=== PATIENT | female | born 1955 | race Caucasian/White ===

== ENCOUNTER 2019-06-25 07:19 | Emergency (ER) | payer OTHER ==
[~2019-06-25] VITALS: Ht 149.9 cm; Wt 67.6 kg
[~2019-06-25 07:19] MED LIST: ARIP10; CLIN150; CLIN150 PO; CLOZ100; CLOZ100 PO; CLOZ25 PO; CLOZARIL; DOCU100 PO; ENJUVIA PO; FERR325; FLUO10 PO; FLUO20; FLUO20 PO; HALO2 PO; HYDACE25S PR; LAMICTAL; LAMO100; LAMO100 PO; LAMO50 PO; LAVAP17G PO; LEVOTHYROXINE; LEVOXYL PO; LEVSOD100; LEVSOD150; LEVSOD150 PO; LITH300C; LITH300CA; LITH300CA PO; LITH450ER PO; LITHIUM; MEDR5; OMEP20ER PO; OXYB5; OXYB5 PO; PROM25 PO; PROZAC; PSYL5.85P PO; RANI150; RANI150 PO; SENNA; SENNP; SULTRIDS PO; TRIH2 PO; [UNRECOGNIZED DRUG - REMARK]
[2019-06-25] MEDS ORDERED: Neurontin400 MG PO (07:37)
[2019-06-25] MEDS ORDERED: THYR60 PO (07:37)
[2019-06-25] MEDS ORDERED: LORAZEPAM0.5 MG PO (07:37)
[2019-06-25] MEDS ORDERED: HYDHCL25 PO (07:38)
[2019-06-25 08:07] LABS: BASOPHILS ABSOLUTE AUTO 0.04 K/mm3 (0.00-0.23); BASOPHILS PERCENT AUTO 0 % (0-2); EOSINOPHILS ABSOLUTE AUTO 0.12 K/mm3 (0.00-0.68); EOSINOPHILS PERCENT AUTO 1 % (0-6); Hematocrit 45.9 % (33.0-51.0); Hemoglobin 14.6 g/dL (11.5-16.0); IMMATURE GRAN ABSOLUTE AUTO 0.03 K/mm3 (0.00-0.10); IMMATURE GRAN PERCENT AUTO 0 % (0-1); LYMPHOCYTES ABSOLUTE AUTO 2.27 K/mm3 (0.84-5.20); LYMPHOCYTES PERCENT AUTO 25 % (21-46); MONOCYTES ABSOLUTE AUTO 0.63 K/mm3 (0.16-1.47); MONOCYTES PERCENT AUTO 7 % (4-13); Mean Corpuscular HGB 30.7 pg (26.0-34.0); Mean Corpuscular HGB Conc 31.8 g/dL (31.5-36.5); Mean Corpuscular Volume 97 fL (80-100); Mean Platelet Volume 10.5 fL (9.1-12.4); NEUTROPHILS ABSOLUTE AUTO 5.98 K/mm3 (1.96-9.15); NEUTROPHILS PERCENT AUTO 66 % (41-73); Platelet Count 232 K/mm3 (150-400); RDW Coefficient Variation 15.4 % (11.7-14.2); RDW Standard Deviation 55.8 fL (35.1-46.3); Red Blood Cell Count 4.75 M/mm3 (3.80-5.20); White Blood Cell Count 9.07 K/mm3 (4.00-11.30)
[2019-06-25 08:29] LABS: Alanine Aminotransfer (ALT/SGP 16 U/L (12-78); Albumin, Blood 4.4 g/dL (3.4-5.0); Albumin/Globulin Ratio 1.4 (0.8-1.8); Alk Phos 61 U/L (50-136); Anion Gap 10 mmol/L (6-16); Aspartate Aminotrans (AST/SGOT 8 U/L (12-37); Bilirubin, Total 0.5 mg/dL (0.1-1.0); Blood Urea Nitrogen 25 mg/dL (8-24); Bun/Creatinine Ratio 32.4 (12.0-20.0); CO2, Blood 26 mmol/L (21-32); Calcium, Blood 10.1 mg/dL (8.5-10.1); Chloride, Blood 105 mmol/L (98-108); Creatinine, Blood 0.77 mg/dL (0.40-1.00); Globulin, Blood 3.1 g/dL (2.2-4.0); Glomerular Filtration Rate >60 (60-); Glucose, Blood 82 mg/dL (70-99); Potassium, Blood 3.9 mmol/L (3.5-5.5); Sodium, Blood 141 mmol/L (136-145); Total Protein, Blood 7.5 g/dL (6.4-8.2)
[2019-06-25 10:13] LABS: Source, Urine Clean Catch
[2019-06-25 10:58] LABS: Blood, Urine 3+ (Neg); Glucose Qualitative, Urine Neg (Neg); Ketones, Urine 4+ (Neg); Leukocyte Esterase, Urine 1+ (Neg); Nitrite, Urine Neg (Neg); Protein, Urine 2+ (Neg); Urobilinogen, Urine NORM (Normal)
[2019-06-25 11:30] LABS: Appearance, Urine Clear (Clear); Bilirubin, Urine 1+ (Neg); Color, Urine Yellow (P-Yellow)
[2019-06-25 11:31] LABS: Bacteria Few /hpf; Squamous Epithelial Cells Few /hpf (Few)
[2019-06-25] MEDS ORDERED: Synthroid25 MCG PO (11:50)
== END 2019-06-25 20:30 | disposition home or self-care (01) ==
LOC: ER 07:19
PROVIDERS: Emergency Medicine
DX: R53.1 Weakness (principal); E03.9 Hypothyroidism, unspecified; F25.9 Schizoaffective disorder, unspecified; F31.9 Bipolar disorder, unspecified; K21.9 Gastro-esophageal reflux disease without esophagitis; G62.9 Polyneuropathy, unspecified; E78.5 Hyperlipidemia, unspecified; Z88.0 Allergy status to penicillin; Z88.8 Allergy status to other drugs, medicaments and biological substances; Z79.899 Other long term (current) drug therapy
CPT/HCPCS: 36415; 70450; 80053; 81001; 84439; 84443; 85025; 87086; 96360; 99285-25; J7030; P9612; Q3014

== ENCOUNTER 2019-07-03 00:52 | Inpatient (IN) | payer OTHER ==
[~2019-07-03] VITALS: Ht 149.9 cm; Wt 67.0 kg
[~2019-07-03 00:52] MED LIST changes: +HYDHCL25 PO; +LORAZEPAM0.5 MG PO; +Neurontin400 MG PO; +Synthroid25 MCG PO; +THYR60 PO
[2019-07-03 01:34] LABS: BASOPHILS ABSOLUTE AUTO 0.02 K/mm3 (0.00-0.23); BASOPHILS PERCENT AUTO 0 % (0-2); EOSINOPHILS ABSOLUTE AUTO 0.13 K/mm3 (0.00-0.68); EOSINOPHILS PERCENT AUTO 2 % (0-6); Hematocrit 42.2 % (33.0-51.0); Hemoglobin 13.5 g/dL (11.5-16.0); IMMATURE GRAN ABSOLUTE AUTO 0.03 K/mm3 (0.00-0.10); IMMATURE GRAN PERCENT AUTO 0 % (0-1); LYMPHOCYTES ABSOLUTE AUTO 1.97 K/mm3 (0.84-5.20); LYMPHOCYTES PERCENT AUTO 25 % (21-46); MONOCYTES ABSOLUTE AUTO 0.52 K/mm3 (0.16-1.47); MONOCYTES PERCENT AUTO 7 % (4-13); Mean Corpuscular HGB 30.6 pg (26.0-34.0); Mean Corpuscular Volume 96 fL (80-100); NEUTROPHILS ABSOLUTE AUTO 5.09 K/mm3 (1.96-9.15); NEUTROPHILS PERCENT AUTO 66 % (41-73); Platelet Count 108 K/mm3 (150-400); RDW Coefficient Variation 14.9 % (11.7-14.2); RDW Standard Deviation 53.3 fL (35.1-46.3); Red Blood Cell Count 4.41 M/mm3 (3.80-5.20); White Blood Cell Count 7.76 K/mm3 (4.00-11.30)
[2019-07-03 01:56] LABS: Free Thyroxine 0.85 ng/dL (0.70-1.60); Lithium <0.20 mmol/L (0.60-1.20)
[2019-07-03 01:57] LABS: Alanine Aminotransfer (ALT/SGP 18 U/L (12-78); Albumin, Blood 3.4 g/dL (3.4-5.0); Albumin/Globulin Ratio 1.2 (0.8-1.8); Alk Phos 58 U/L (50-136); Anion Gap 10 mmol/L (6-16); Aspartate Aminotrans (AST/SGOT 16 U/L (12-37); Bilirubin, Total 0.5 mg/dL (0.1-1.0); Blood Urea Nitrogen 11 mg/dL (8-24); Bun/Creatinine Ratio 16.9 (12.0-20.0); CO2, Blood 24 mmol/L (21-32); Calcium, Blood 9.1 mg/dL (8.5-10.1); Chloride, Blood 108 mmol/L (98-108); Creatinine, Blood 0.65 mg/dL (0.40-1.00); Globulin, Blood 2.8 g/dL (2.2-4.0); Glomerular Filtration Rate >60 (60-); Glucose, Blood 77 mg/dL (70-99); Potassium, Blood 3.5 mmol/L (3.5-5.5); Sodium, Blood 142 mmol/L (136-145); Total Protein, Blood 6.2 g/dL (6.4-8.2); Troponin I <0.015 ng/mL (0.000-0.040)
[2019-07-03 01:58] LABS: Thyroid Stimulating Hormone 21.2 uIU/mL (0.360-4.800)
[2019-07-03 02:20] LABS: Source, Urine Catheter
[2019-07-03 02:23] LABS: Blood, Urine 1+ (Neg); Glucose Qualitative, Urine Neg (Neg); Ketones, Urine 4+ (Neg); Leukocyte Esterase, Urine 1+ (Neg); Nitrite, Urine Neg (Neg); Protein, Urine 1+ (Neg); Specific Gravity, Urine 1.025 (1.003-1.022); Urobilinogen, Urine 1+ (Normal)
[2019-07-03 02:29] LABS: Appearance, Urine Hazy (Clear); Bilirubin, Urine 1+ (Neg); Color, Urine Yellow (P-Yellow)
[2019-07-03 02:30] LABS: Amorphous Mod (0-Heavy); Bacteria Few /hpf; Red Blood Cells, Urine Rare /hpf (0-2); Squamous Epithelial Cells Rare /hpf (Few)
--- NOTE | 2019-07-03 06:26 | NUR ---
D-DIMER ELEVATED D-DIMER WITH LAB DRAW. DR. AEVRY CALLED AND NOTIFIED. PE STUDY ORDERED. PT RESTING IN BED AT THIS TIME. WITH NO S/S OF DISTRESS.
--- NOTE | 2019-07-03 06:36 | NUR ---
SHIFT SUMMARY PT ER ADMIT THIS AM AT 0430. PT HAS GENERAIZED WEAKNESS, PT EXT ARE CONTROLLED AND RIGID. SHE IS UNABLE TO MOVE HER NECK FROM SIDE TO SIDE. WHEN I ASKED TO TO LIFT HER HANDS SHE WAS ABLE TO AND WAS ABLE TO GRASP MY HANDS. GRASPS WAS STRONG. HOWEVER PT HAS VERY LITTLE FINE MOTOR SKILLS AND IS UNABLE TO GRASP A PEN. PUPILS ARE EQUAL AND REACTIVE. SHE SWALLOWS WITHOUT DIFFICULTY. EXT WARM TO TOUCH. PT ABLE TO GIVE A SLIGHT SMILE. PT REPORTS PAIN IN HER LEGS. NO REDNESS, SWELLING TO LEGS. SKIN OVERALL IS WNL. HER VITALS ARE STABLE. PT A/OX4, SPEECH IS SLOW AND MUFFULED. PER DR. BRICENO POSSIBLE CATONIA? CONSULT FAXED IN FOR DR. SHOEMAKER. D-DIMER ELEVATED, IV INFILTRATED. STAT PE STUDY TO BE DONE THIS AM ONCE IV ACCESS IS REESTABLISHED. LOAD BLOCKER AWARE OF LOSS OF IV ACCESS. PT DIFFICULT START REQUIRING ULTRASOUND. IV ABX STILL NEEDING TO BE INFUSED. DUE TO PT LEG PAIN, AND POSSIBILTY OF PE, SCDS WERE REMOVED UNTIL RESULTS OF STUDY ARE BACK. ADMISSION COMPLETE. BED IN LOWEST POSITION. CALL LIGHT WITHIN REACH. WILL CONTINUE TO MONITOR AND REPORT TO ONCOMING RN.
[2019-07-03] MEDS ORDERED: DOCU100 PO (07:16)
--- NOTE | 2019-07-03 09:00 | NUR ---
PT PLEASANT QUIET, ALMOST WHISPER. A/O X3. STATES FROM [place] LAST 8 YRS. BUT NOW WITH SISTER RECENTLY. H/R REG, NO MURMER NOTED. NO TELE. LUNGS CLEAR, RESP EASY, UNLABORED ON RA. VOIDS ATTENDS. WILL ATTEMPT BEDPAN. STATES KNOWS IF NEEDS TO USE BATHROOM. ALSO KNOWS IF WET. BUT UNABLE TO WALK AT THIS TIME. PT STATES HAS SOME FEELING IN LEGS, JUST CANT MOVE THEM. BED IN LOW POSITION, CALL LITE IN REACH, BED ALARM ON FOR SAFETY
[2019-07-03 09:56] LABS: International Normalized Ratio 1.02; Prothrombin Time Results 10.9 Sec (9.7-11.5)
--- NOTE | 2019-07-03 10:07 | NUR ---
0820 IMAGING, DR SANCHEZ CALLED. PE RT SIDE. CALLED DAPHNE. ORDERS FOR HEPARIN BOLUS AND DRIP, PHARMACY TO CONTROL RATE. STARTED BOLUS AND DRIP. ALSO ORDERS FOR CONT BIOX. STARTED.
--- NOTE | 2019-07-03 11:10 | NUR ---
DR PALAFOX. CANCELLED MRI ORDERS AT THIS TIME. PEND [facility]. .
--- NOTE | 2019-07-03 18:45 | NUR ---
PT PLEASANT TODAY WITH ME. DENIES PAIN. SAYS CANNOT MOVE EXTREMETIES. HOWEVER DOES MOVE SOME. JESI R/T STOPPED MEDS . WE ARE RESTARTING TODAY. CONTINUE TURNING Q2. KEEPING CLEAN AND DRY. HEPARIN DRIP RUNNING PER ORDERS. NO OTHER CONCERNS AT THIS TIME. BED IN LOW POSITION, CALL LITE IN REACH, CALLS APPROP
--- NOTE | 2019-07-04 03:57 | NUR ---
SHIFT SUMMARY PATIENT HAD NO ACUTE CHANGES. AXOX 3 AND SLOW TO RESPOND. BEDREST. PIVS REMAIN INTACT. HEPARIN INFUSING AT 17 mL/HR MANAGED BY PHARMACY. REPORTED JAW PAIN AND TYLENOL GIVEN PER EMAR AND IV TORADOL GIVEN FOR LEG PAIN PER EMAR. PO BENADRYL 25 MG GIVEN FOR INSOMINA. DENIES SOB AND N/V. VSS/AFEBRILE. CALL LIGHT IN REACH. BED IN LOWEST POSITION. WILL CONTINUE TO MONITOR UNTIL DAY SHIFT NURSE ASSUMES CARE.
--- NOTE | 2019-07-04 11:10 | NUR ---
Advance Directive education attempted. Upon receiving an admit referral for advance directive education, I visit patient. Patient asks what an advance directive is and I inform her of the importance, the content and the process of the advance directive and patient and her sister, Nguyen, inform me that they have no interest in learning more or receiving an advance directive booklet.
--- NOTE | 2019-07-04 12:45 | NUR ---
PT IS CALM W/ FLAT AFFECT, PERIODICALLY ASKS FOR REPOSITIONING, ADJUSTING OF ARMS OR LEGS, BED ADJUSTMENT. PT C/O PAIN TO ANKLES BILATERALLY. LEGS REPOSITIONED TO PT'S COMFORT LEVEL WITH PILLOWS, MEDICATED PER EMAR. PT'S SISTER IN ROOM.
--- NOTE | 2019-07-04 18:42 | NUR ---
SHIFT SUMMARY. A&OX2-3, INTERMITTENT CONFUSION, PLEASANT AND COOPERATIVE WITH CARE. PT IS INCONTINENT WITH POOR BED MOBILITY, NEEDS ANTICIPATED. PT REPORTS PAIN TO ANTERIOR SHINS UNRELIEVED WITH PRN APAP, DR. BRITO NOTIFIED AND RECIEVED ORDERS FOR TRAMADOL WHICH MANAGED PAIN WELL. NO N/V, SOB. POOR APPETITE AND MEAL INTAKE. PT DID NOT VOID SINCE BEGINING OF THE SHIFT, BLADDER SCAN VOLUME [address] BRITO NOTIFIED AND RECIEVED ORDERS FOR STRAIGHT CATH Q6H FOR BLADDER SCAN VOLUME GREATER THAN 400 ML. STRAIGHT CATH COMPLETED, 750ML DRAINED. SISTER AT BEDSIDE ALL OF AFTERNOON. PHYSICAL THERAPY REPORTS THAT PT'S MOVEMENT HAS INCREASED FROM WHAT WAS PREVIOUSLY REPORTED. NO OTHER CHANGES OR CONCERNS.
--- NOTE | 2019-07-04 21:55 | NUR ---
PATIENT RESTING IN BED. SISTER SLEEPING ON BENCH SEAT. DENIES PAIN, SOB, AND N/V. CALL LIGHT IN REACH.
--- NOTE | 2019-07-05 02:43 | NUR ---
BLADDER SCAN CHECK: 161 mL. WILL CONTINUE TO MONITOR.
--- NOTE | 2019-07-05 03:17 | NUR ---
ULTRAM 50 MG GIVEN FOR BILATERAL LEG PAIN. PATIENT UP MOST OF THE SHIFT WITH SISTER. CALL LIGHT IN REACH.
--- NOTE | 2019-07-05 03:31 | NUR ---
SHIFT SUMMARY PATIENT HAD NO ACUTE CHANGES OBSERVED. AXOX 3 AND SLOW TO RESPOND. BEDREST. TAKES MEDICATION ONE AT A TIME. PIVS REMAIN INTACT. SISTER PRESENT IN ROOM T/O SHIFT. PATIENT UP MOST OF THE SHIFT TALKING TO SISTER ON/OFF. REPORTED BILATERAL LEG PAIN AND ULTRAM 50 MG GIVEN PER EMAR. DENIES SOB AND N/V. VSS/AFEBRILE. BLADDER SCAN: 161 mL. PIVS REMAIN INTACT. CALL LIGHT IN REACH. BED IN LOWEST POSITION. WILL CONTINUE TO MONITOR UNTIL DAY SHIFT NURSE ASSUMES CARE.
--- NOTE | 2019-07-05 18:41 | NUR ---
SHIFT SUMMARY. ALERT, ORIENTATED TO SELF AND FAMILY, AND PLACE. PT REPORTED PAIN WAS TOLERABLE THIS SHIFT AND DENIED THE NEED FOR PAIN MEDICATION. NO N/V. PT BECAME ANXIOUS THIS EVENING, YELLING OUT, PRN ATIVAN GIVEN, PT CALMED DOWN SIGNIFICANTLY POST ADMINISTRATION. PT REFUSED STRAIGHT CATH, NO VOID THIS SHIFT, WILL REQUEST SALES REPRESENTATIVE GIRLS[employer]PAREL TO REAPROACH. PT REFUSED SUPPOSITORY AND BOWEL CARE MEDS, WILL REQUEST SALES REPRESENTATIVE [employer]IR[employer] REAPPROACH. SISTER AT BEDSIDE MOST OF THE SHIFT. PT UP TO CHAIR WITH TWO ASSIT FOR MEALS. NO OTHER CHANGES OR CONCERNS.
--- NOTE | 2019-07-06 02:54 | NUR ---
PT HAD LARGE BM POST SUPPOSITORY. PT HAD < 400 ML WHEN BLADDER SCANNED. PT ABLE TO VOID ON TOILET.
--- NOTE | 2019-07-06 05:23 | NUR ---
SUMMARY PT HAD A LARGE BM AND VOIDED WELL. PT BLADDER SCAN THIS AM IS <400 ML, WCTM. PT HAD NO COMPLAINTS AND HAS RESTED WELL. PT SISTER HAS STAYED THE NIGHT WITH PT. PT IS STILL UNSTEADY ON HER FEET. PT CURRENTLY SLEEPING AND BREATHING EASY. CALL LIGHT IN REACH AND BED ALARM ON.
--- NOTE | 2019-07-06 06:39 | NUR ---
PT COMPLAINING OF ISSUES FROM DROOLING. PT STATES MARVINDRYL HELPS WITH ISSUE. WILL PASS ON TO DAY RN. PT MAY BENEFIT FROM PRN TIAYL FOR DROOLING PROBLEM. JAMAAL.
--- NOTE | 2019-07-06 17:11 | NUR ---
SHIFT SUMMARY- PT IS A/O, PLEASANT AND COOPERATIVE. SHE IS EATING AND DRINKING WELL. SHE IS HAVING SOME EXCESSIVE SALAVATION THAT IS BOTHERING HER, SHE IS RECIEVING BENADRYL FOR IT. SHE WORKED WITH PHYSICAL THERAPY THIS AFTERNOON AND TOLERATED THAT WELL. HER SISTER HAS BEEN AT THE BEDSIDE THROUGHOUHT THIS SHIFT.
--- NOTE | 2019-07-07 01:48 | NUR ---
PT RESTING COMFORTABLY IN BED WITH SISTER SPENDING NIGHT AT SIDE SLEEPING IN LOUNGE CHAIR.
--- NOTE | 2019-07-07 04:24 | NUR ---
SHIFT SUMMARY: 63 Y/O FEMALE RESTED COMFORTABLY ALL SHIFT WITH SISTER EBEN AT SIDE AND SUPPORTIVE; DENIES PAIN OR NAUSEA; PT ALERT AND ORIENTED X 3; TOOK ALL MEDS IN APPLESAUCE WITHOUT ISSUE; BED ALARM APPLIED, BED LOW POSITION WITH CALL LIGHT AT SIDE.
--- NOTE | 2019-07-07 11:38 | NUR ---
PATIENT HAS NOT BOIDED THIS SHIFT. BLADDER SCAN DONE AND IT WAS 530. RN NOTIFIED.
[2019-07-07 14:22] LABS: Source, Urine Catheter
[2019-07-07 14:27] LABS: Appearance, Urine Clear (Clear); Bilirubin, Urine Neg (Neg); Blood, Urine Neg (Neg); Color, Urine Yellow (P-Yellow); Glucose Qualitative, Urine Neg (Neg); Ketones, Urine 3+ (Neg); Leukocyte Esterase, Urine Neg (Neg); Nitrite, Urine Neg (Neg); Protein, Urine Neg (Neg); Urobilinogen, Urine NORM (Normal)
--- NOTE | 2019-07-07 17:27 | NUR ---
SHIFT SUMMARY- PT IS A/O PLESANT AND COOPERATIVE. HER SISTER WAS AT HER BEDSIDE UNTIL THIS AFTERNOON. UPON BLADDERSCAN PT HAD RETAINED URINE OF 580 ML. ENCOURAGED PT TO VOID. SHE SAT UNSUCCESSFULLY ON THE BEDSIDE CAMMODE. PLACED STRAIGHT CATH AND DRAINED 500ML. SHE SLEPT INTERMITENTLY THROUGHOUT THIS SHIFT. ONE EPISODE OF DROOLING WHERE SHE REQUESTED BENADRYL. SHE IS EATING AND DRINKING WELL
--- NOTE | 2019-07-08 06:15 | NUR ---
SHIFT SUMMARY: PATIENT IS A&OX4, SLOW TO ANSWER QUESTIONS, FLAT AFFECT. REPORTING PAIN IN BILAT LE, TRAMADOL WAS GIVEN WITH GOOD EFFECT. PATIENT ALSO REQUESTED BENADRY FOR DROOLING AND SLEEP, MED WAS GIVEN WITH GOOD EFFECT. PATIENT DOES HAVE THE URGE TO VOID AT TIMES BUT IS UNABLE TO VOID SPONTANIOUSLY WHEN ASSISTED TO THE BSC. BLADDER SCAN IS DONE Q 6 HOURS AND PRN 172, [phone], [phone]. PATIENT IS NOW DUE TO VOID. VS ARE STABLE WILL CONTINUE TO MONITOR.
--- NOTE | 2019-07-08 13:08 | NUR ---
07/08/2019 Patient gave permission for this nursing consultant to assist in care tomorrow 07/09/2019
--- NOTE | 2019-07-08 17:01 | NUR ---
SHIFT SUMMARY PT AWAKE THIS AM DURING SHIFT REPORT. PT REPORTED THAT SHE HAS NOT BEEN ABLE TO VOID. PER SHIFT REPORT, PT HAS BEEN BEING BLADDER SCANNED AND STRAIGHT CATH'D FOR GREATER THAN 400cc. PT WITH VERY FLAT AFFECT AND HX OF SCHIZOPHRENIA; CURRENTLY BEING SEEN BY DR MCKEON AND ON PSYCH MEDS. PT TALKS AND MOVES VERY SLOWLY. PT WAS INITIALLY FIXATED ON RECEIVING A CATHETER, BUT ATTEMPTED TO EDU PT ON RISK OF PLACING CATHETER AND WANTING TO GET PT BACK TO VOIDING ON HER OWN. ASSISTED PT TO BSC SEVERAL TIMES. ENCOURAGED PT TO DRINK WATER AND TRY TO VOID ON HER OWN. BLADDER DONE PER ORDERS IN AM AND AGAIN THIS AFTERNOON. 2ND SCAN SHOWING 506cc; STRAIGHT CATH OBTAINED AND DRAINED 600cc. DR MCKEON IN TO SEE PT. DISCUSSED POSSIBLE MEDS CAUSING URINARY RETENSION. MEDICATIONS ADJUSTED BY DR MCKEON. DR PALAFOX BACK TO CHEK ON PT. UPDATE GIVEN. BOWEL CARE GIVEN THIS AM AND AGAIN THIS AFTERNOON. NO BM YET. PT TO REQUEST SUPPOSITORY LATER TONIGHT. PT'S SISTER IN TO VISIT THIS AFTERNOON. ASSISTING PT WITH HER DINNER AT THIS TIME. DENIES FURTHER NEEDS. CALL LT IN REACH.
--- NOTE | 2019-07-09 04:41 | NUR ---
IV saline lock bilat wrists present PT says both placed in ER. SL patent but not documented.
--- NOTE | 2019-07-09 06:25 | NUR ---
63 year old Female with mental health DX of schitzophrenia and recent catatonia developed rt le DVT while nonambulatory. PT has constipation and had hard romero brown med BM with dulcolax supp per rectum. She is on xaralto to tx DVT. PT co bilat LE pain medicated x 1 with tylenol and x 1 with ultram 50 mg with good relief. Sister Nguyen at bedside, Sister NGUYEN talks nonstop often nonsensical. PT is quiet with soft voice. She is oim consultant hoang frequently with multiple requests to be covered, uncovered turned or small things she could do. Poor fluid intake. bladder scan x 2 with less than 300 ml retention. PT medicated x 2 with 0.5 mg ativan for anxiety. PT declined benadryl at HS. Encouraged rest and Sister may be disturbing restfull sleep. PT reciently moved into 5th wheel with Sister after leaving [place]. Exmiltary.
--- NOTE | 2019-07-09 14:35 | NUR ---
Jacy gave permission for care on 07/09/19 for 07/10/19
--- NOTE | 2019-07-09 18:24 | NUR ---
SHIFT SUMMMARY... NO ACUTE NEGATIVE CHANGES NOTED THIS SHIFT. PT'S VS HAVE BEEN STABLE. PT WAS UP IN THE CHAIR FOR APROX 45MINS TODAY. PT C/O OF RIB/BACK PAIN AFTER WORKING WITH PT/OT TODAY. PT'S SISTER AT THE BEDSIDE MOST OF THIS SHIFT. CALL LIGHT IN REACH WILL CONTINUE TO MONITOR UNTIL REPORT IS GIVEN TO ONCOMING RN.
--- NOTE | 2019-07-10 02:42 | NUR ---
PT continues weak but she has been up to chair with assist and up to bedside commode with fww gait belt and moderate assist. No drooling noted. Urinary rewtewntion improving. PT has been able to void x 3 and her last bladder scan 279 hours after last void. She has back pain as well as bilat le pain. Medicated with ultram 50 mg with helpful effect. She requests antianxiety rx ativan 0.5 mg po x 1 for anxiety with helpful effect.
--- NOTE | 2019-07-10 18:49 | NUR ---
No acute changes noted. Patient has been up and ambulating to the bathroom and out to mahmood with staff. no current complaints of pain or discomfort noted. Patient continues to be stiff when she is sitting or walking but is doing better with transfers.
--- NOTE | 2019-07-11 00:53 | NUR ---
63 year old Female with Schitzopherenia and recent catatonia continues to make improvement. She had RT LE DVT from inactivity while catatonic and is tolerating anticoagulant therapy BID without s/sx bleeding. No drooling or urinary retention noted. Constipation fully relieved after bowel care was given. PT says she had 5 bowel movements yesterday. Able to communicate, uses call hoang frequently while awake. Voice soft and pleasant. Resting quietly after taking ultram 50 mg for back and leg pain. Working with PT and getting up to chair and ambulating to bathroom with minimal assist. Does walk on tiptoes.
--- NOTE | 2019-07-11 19:16 | NUR ---
SHIFT SUMMARY PATIENT MEDICATED X2 FOR PAIN. DENIES NAUSEA AND SHORTNESS OF BREATH. PATIENT UP SBA W/FWW TO BATHROOM. PATIENT AMBULATED IN [place]. PT AND OT WORKED WITH PATIENT. PATIENT POSSIBLE DISCHARGE TOMORROW.
--- NOTE | 2019-07-11 20:54 | NUR ---
2035- PATIENT LAYING DOWN IN BED, STATES SHE IS READY TO TAKE HER PILLS AND GO TO SLEEP. REPORTS PAIN IN HER LEG AT 8/10. WILL MEDICATE FOR PAIN. WAS UP TO BATHROOM NOT TO LONG AGO AND DID OK WALKING, JUST SLIGHTLY WEAK. ASSESSMENT COMPLETED, MEDS ADMINISTERED. CALL LIGHT IN REACH. BED ALARM IS ON. WILL CONTINUE TO MONITOR.
--- NOTE | 2019-07-12 05:30 | NUR ---
SHIFT SUMMARY: ZANE HAD A PLEASANT NIGHT SLEEPING OFF AND ON. SHE DID HAVE TROUBLE URINATING THIS SHIFT. EACH TIME WITH ONLY DROPS OF URINE. BLADDER SCANS TONIGHT WERE AVERAGING 270'S. THEN SHE GOT UP AND VOIDED LARGE AMOUNT. PAIN MEDICATION WAS GIVEN TWICE FOR PAIN OF 8/10, AFTER MEDS 4-5. SHE STILL VERY WEAK AND NEEDS ASSISTANCE TO BSC OR TO BATHROOM. MEDS GIVEN WITH APPLESAUCE SHE SWALLOWED THEM WELL. NO ACUTE CHANGES THIS SHIFT.
--- NOTE | 2019-07-12 16:08 | NUR ---
SHIFT SUMMARY PATIENT MEDICATED X2 FOR PAIN THIS SHIFT. PATIENT DENIES NAUSEA AND SHORTNESS OF BREATH. PATIENT UP SBA W/FWW. PATIENT AMBULATED IN HALLWAY WITH STAFF TODAY. PATIENT NAPPED IN BETWEEN MEALS AND WALKS.
--- NOTE | 2019-07-12 22:05 | NUR ---
192-PATIENT LAYING IN BED, STATES SHE IS TO HOT. TURNED DOWN THE HEAT IN THE ROOM. SHE STATES HER PAIN IS 3/10 IN HER BACK. LUNG SOUNDS CLEAR, NO COUGH OR CONGESTION NOTED. IS ABLE TO USE CALL LIGHT APPROPRIATLY. DENIES ANY NEEDS AT THIS TIME.
--- NOTE | 2019-07-13 05:16 | NUR ---
SHIFT SUMMARY: ZANE HAS HAD A ROUGH NIGHT. SHE HAS BEEN RESTLESS AND UP AND DOWN. SHE JUST COULD NOT GET COMFORTABLE, CONSTANTLY WANTING THE THERASTAT CHANGED. SHE EVEN WENT FOR A SMALL WALK IN THE [place]. SHE REPORTED PAIN ONLY ONCE AT WHICH MEDS WERE GIVEN. VS REMAIN WNL. SHE STILL HAS DIFFICULTY URNIATING BUT BLADDER SCAN WERE ALL IN THE 200'S. SHE WAS ABLE TO VOID ONCE IN LARGE AMOUNT. NO FURTHER CHANGES TO REPORT. CALL LIGHT IN REACH AND BED ALARM ON.
[2019-07-13 05:56] LABS: Hematocrit 43.2 % (33.0-51.0); Hemoglobin 13.7 g/dL (11.5-16.0); Mean Corpuscular HGB 30.2 pg (26.0-34.0); Mean Corpuscular HGB Conc 31.7 g/dL (31.5-36.5); Mean Corpuscular Volume 95 fL (80-100); Mean Platelet Volume 10.6 fL (9.1-12.4); Platelet Count 205 K/mm3 (150-400); RDW Coefficient Variation 14.8 % (11.7-14.2); RDW Standard Deviation 52.2 fL (35.1-46.3); Red Blood Cell Count 4.53 M/mm3 (3.80-5.20); White Blood Cell Count 8.69 K/mm3 (4.00-11.30)
[2019-07-13 06:31] LABS: Albumin, Blood 3.7 g/dL (3.4-5.0); Anion Gap 9 mmol/L (6-16); Blood Urea Nitrogen 9 mg/dL (8-24); Bun/Creatinine Ratio 12.9 (12.0-20.0); CO2, Blood 25 mmol/L (21-32); Calcium, Blood 9.7 mg/dL (8.5-10.1); Chloride, Blood 106 mmol/L (98-108); Glomerular Filtration Rate >60 (60-); Glucose, Blood 98 mg/dL (70-99); Phosphorus, Blood 3.9 mg/dL (2.5-4.9); Potassium, Blood 3.8 mmol/L (3.5-5.5); Sodium, Blood 140 mmol/L (136-145)
--- NOTE | 2019-07-13 17:53 | NUR ---
PT HAS RESTED MOST OF THE SHIFT, BEEN UP WALKING WITH STAFF FOR SHORT DISTANCES. PT REFUSES ALL SHOWERS AND IS STARTING TO STINK. NO AMOUNT OF ENCOURAGEMENT FROM STAFF WILL GET HER TO SHOWER. PT OFTEN RELIES ON STAFF TO DO SIMPLE TASKS SHE IS CAPABLE OF DOING. THIS NURSE ENCOURAGES HER TO DO MUCH SHE CAN, WHICH SHE DOES. NO ACUTE CHANGES. PT ALERT AND ORIENTED . SISTER AT BEDSIDE.
--- NOTE | 2019-07-13 22:21 | NUR ---
1915-ASSUMED CARE OF THE PATIENT. SHE WAS UP IN THE HALLS AND WENT BACK TO THE ROOM WITH HER SISTER. SISTER IS PLANNING ON STAYING THE NIGHT. ZANE STATES HER BACK WAS HURTNG SO WE GOT HER A HEATING PAD. THEN SHE DID NOT LIKE IT. SHE IS CONSTANTLY PUTTING HER BLANKET IN HER MOUTH AND DROOLING WHICH IS A NEW BEHAVIOR THAT SHE HAS NOT HAD. WILL CONTINUE TO MONITOR THROUGHOUT THE NIGHT.
--- NOTE | 2019-07-14 01:59 | NUR ---
ZANE SISTER WAS KEEPING HER AWAKE TALKING TO HER AND NOT ALLOWING HER TO SLEEP. THEY FINALLY JUST LAYED DOWN AND STOPPED TALKING. CALL LIGHT IN REACH. WILL CONTINUE TO MONITOR.
--- NOTE | 2019-07-14 04:24 | NUR ---
SHIFT SUMMARY: ZANE HAS BEEN UP AND DOWN ALL NIGHT. HER SISTER STAYED THE NIGHT AND KEPT HER AWAKE AT THE START. SHE FELL ASLEEP ONLY FOR A FEW MINUTES HERE AND THERE. SHE COMPLAINED OF STIFFNESS THAT SHE FELT LIKE SHE HAD TO GET UP AND MOVE ALL THE TIME. SO SHE GOT SEVERAL SMALL WALKS OUT IN THE [place] AND BACK TO THE ROOM. SHE TALKED ABOUT GOING BACK HOME WITH HER SISTER, AND HOW THEY LIVE IN A 5TH WHEEL. SHE REPORTS SHE NORMALLY IS ABLE TO GET UP THE STAIRS INTO THE TRAILER LONG SHE HOLDS ON. SHE GETS UP THE BEDROOM STAIRS SOME OF THE TIMES, BUT HALF THE TIME SHE HAS TO CRAWL BACK DOWN THEM. HER SISTER HAS TROUBLE WALKING DUE TO KNEE PROBLEMS. DISCUSSED CONCERNS ON HOW HER SISTER IS GOING TO BE ABLE TO CARE FOR HER. SHE STATES SHE HAS BEEN DOING IT FOR SOME TIME. SISTER ALSO HAS TO USE SCOOTER TO GET AROUND OR A WALKER. WILL PASS ONTO DAY SHIFT TO PASS TO NETWORK SECURITY ARCHITECT. VS REMAINED STABLE. NO OTHER CHANGES OCCURRED THIS SHIFT.
[2019-07-14] MEDS ORDERED: ACET325 PO (11:28)
[2019-07-14] MEDS ORDERED: BENADRYL25 MG PO (11:29)
[2019-07-14] MEDS ORDERED: FLUP5 PO (11:29)
[2019-07-14] MEDS ORDERED: LEVO-T125 MC1 PO (11:31)
[2019-07-14] MEDS ORDERED: XARELTO15 M1 PO (11:33)
[2019-07-14] MEDS ORDERED: XARELTO20 MG PO (11:34)
--- NOTE | 2019-07-14 12:27 | NUR ---
PT TO DISCHARGE HOME ON HH. PT HAD BELONGINS PACKED BY STAFF. IV REMOVED, NO SS OF INFECTION NOTED. PT EDUCATED REGARDING NEW MEDS AND TO INSTRUCTED TO FOLLOW UP WITH PCP. PT WOULDNT ALLOW STAFF TO DRESS HER AND WORE HOME HOSPTIAL CLOTHES. PT TAKEN HOME BY TRANSPORT. MEDS FAXED TO [facility].
== END 2019-07-14 12:03 | disposition home health service (06) | DRG 885 ==
LOC: ER 00:52 → MEDS 00:53 → ENPENDDIS 07-14 10:00 → MEDS 07-14 12:03
PROVIDERS: Emergency Medicine; Internal Medicine; Pharmacist; ADMIT Family Medicine
DX: F20.2 Catatonic schizophrenia (principal); I82.401 Acute embolism and thrombosis of unspecified deep veins of right lower extremity; E03.9 Hypothyroidism, unspecified; E78.5 Hyperlipidemia, unspecified; G62.9 Polyneuropathy, unspecified; F17.210 Nicotine dependence, cigarettes, uncomplicated; D69.6 Thrombocytopenia, unspecified
CPT/HCPCS: 36415; 51701; 70450; 71046; 71260; 80053; 80069; 80178; 81001; 81003; 82550; 84439; 84443; 84484; 85025; 85027; 85379; 85610; 85730; 87086; 93005; 93010; 93970; 94762; 96365; 96366; 96375; 96376; 97110; 97112; 97116; 97162; 97166; 97530; 97535; 99285-25; A9270; A9270-GY; C9113; G0378; J1644; J1885; J1956; P9612; Q0163; Q9967

== ENCOUNTER 2019-07-18 14:18 | Emergency (ER) | payer OTHER ==
[~2019-07-18] VITALS: Ht 149.9 cm; Wt 68.0 kg
[~2019-07-18 14:18] MED LIST changes: +ACET325 PO; +BENADRYL25 MG PO; +FLUP5 PO; +LEVO-T125 MC1 PO; +XARELTO15 M1 PO; +XARELTO20 MG PO
[2019-07-18 16:23] LABS: BASOPHILS ABSOLUTE AUTO 0.04 K/mm3 (0.00-0.23); BASOPHILS PERCENT AUTO 1 % (0-2); EOSINOPHILS ABSOLUTE AUTO 0.09 K/mm3 (0.00-0.68); EOSINOPHILS PERCENT AUTO 1 % (0-6); Hemoglobin 15.1 g/dL (11.5-16.0); IMMATURE GRAN ABSOLUTE AUTO 0.06 K/mm3 (0.00-0.10); IMMATURE GRAN PERCENT AUTO 1 % (0-1); LYMPHOCYTES ABSOLUTE AUTO 2.15 K/mm3 (0.84-5.20); LYMPHOCYTES PERCENT AUTO 24 % (21-46); MONOCYTES ABSOLUTE AUTO 0.55 K/mm3 (0.16-1.47); MONOCYTES PERCENT AUTO 6 % (4-13); Mean Corpuscular HGB Conc 32.1 g/dL (31.5-36.5); Mean Corpuscular Volume 97 fL (80-100); Mean Platelet Volume 10.7 fL (9.1-12.4); NEUTROPHILS ABSOLUTE AUTO 5.95 K/mm3 (1.96-9.15); NEUTROPHILS PERCENT AUTO 67 % (41-73); Platelet Count 226 K/mm3 (150-400); RDW Coefficient Variation 14.8 % (11.7-14.2); RDW Standard Deviation 53.1 fL (35.1-46.3); Red Blood Cell Count 4.87 M/mm3 (3.80-5.20); White Blood Cell Count 8.84 K/mm3 (4.00-11.30)
[2019-07-18 16:37] LABS: International Normalized Ratio 1.07; Prothrombin Time Results 11.4 Sec (9.7-11.5)
[2019-07-18 16:46] LABS: Alanine Aminotransfer (ALT/SGP 33 U/L (12-78); Albumin, Blood 4.2 g/dL (3.4-5.0); Albumin/Globulin Ratio 1.4 (0.8-1.8); Alk Phos 61 U/L (50-136); Anion Gap 8 mmol/L (6-16); Aspartate Aminotrans (AST/SGOT 17 U/L (12-37); Bilirubin, Total 0.6 mg/dL (0.1-1.0); Blood Urea Nitrogen 13 mg/dL (8-24); Bun/Creatinine Ratio 20.8 (12.0-20.0); CO2, Blood 24 mmol/L (21-32); Calcium, Blood 10.1 mg/dL (8.5-10.1); Chloride, Blood 105 mmol/L (98-108); Creatinine, Blood 0.63 mg/dL (0.40-1.00); Globulin, Blood 3.1 g/dL (2.2-4.0); Glomerular Filtration Rate >60 (60-); Glucose, Blood 75 mg/dL (70-99); Potassium, Blood 3.9 mmol/L (3.5-5.5); Sodium, Blood 137 mmol/L (136-145); Total Protein, Blood 7.3 g/dL (6.4-8.2)
== END 2019-07-18 19:49 | disposition home or self-care (01) ==
LOC: ER 14:18
PROVIDERS: Physician Assistant
DX: F20.9 Schizophrenia, unspecified (principal); K21.9 Gastro-esophageal reflux disease without esophagitis; E03.9 Hypothyroidism, unspecified; E78.5 Hyperlipidemia, unspecified; Z88.0 Allergy status to penicillin; Z79.899 Other long term (current) drug therapy; Z87.891 Personal history of nicotine dependence
CPT/HCPCS: 36415; 70450; 80053; 85025; 85610; 93005; 93010; 99285-25